=== PATIENT | male | born 1985 | race Caucasian/White ===

== ENCOUNTER 2016-10-10 11:36 | Emergency (ER) | payer BC ==
[2016-10-10 11:49] VITALS: BP 172/98
[2016-10-10] MEDS ORDERED: KETOROLAC TROMETHAMINE 60 MG/2 ML VIAL IM ONE ×2 (11:58→12:10)
[2016-10-10] MEDS ORDERED: CYCLOBENZAPRINE HCL 10 MG TABLET PO ONE (12:02)
[2016-10-10] MEDS ORDERED: CYCLOBENZAPRINE HCL 10 MG TABLET ONE (12:10)
--- NOTE | 2016-10-10 12:11 | ERNOTE ---
Back Pain ER HPI Date of Service: 10/10/16 Presenting Symptoms: injury/pain to back Time Seen by Provider: 10/10/16 11:57 Source: patient Exam Limitations: no limitations Immunizations: IMMUNIZATION HX Immunizations Up to Date Yes History of Influenza Vaccine No Hx Pneumococcal Vaccination No Allergies/Adverse Reactions: Allergies Sulfa (Sulfonamide Antibiotics) [Sulfa(Sulfonamide Antibiotics)] Allergy ( Unknown, Verified 10/10/16 11:49) REACTION A BABY, UNKOWN codeine Adverse Reaction (Mild, Verified 10/10/16 11:49) Nausea tramadol HCl [From Ultra] Adverse Reaction (Mild, Verified 10/10/16 11:49) Nausea Home Medications: HOME MEDICATIONS Albuterol Sulfate [Albuterol Sulfate 0.63 MG/3ML] 0.63 mg IH PRN 07/24/ [Last Taken Unknown] Ibuprofen [Motrin] 600 mg PO Q6H PRN 10/10/16 [Last Taken Unknown] Tizanidine HCl [Zanaflex] 4 mg PO TID PRN #15 capsule 10/10/16 [Last Taken Unknown] - Pain Score Pain Score #1 Pain Score: 10 - lower back, with movement Narrative: 31 y/o male presented to ED s/p fall 3 days ago. Patient states that he was walking down his deck stairs and slipped on the last stair and landed on his butt on the stair. His back pain is in the lower lumbar area more to the left side. Timing: Reports: constant, getting worse Quality/Severity: Reports: moderate Location of pain: Reports: lower back, radiating to lf thigh/leg, no radiation Activities at Onset: Reports: activity Recent Injury?: Reports: yes - 3 days ago Possible Precipitating Factor: Reports: fall/near fall Modifying Factors - (Improves): Reports: nothing, movement to right Modifying Factors - (Worsens): Reports: movement flexion Associated Symptoms: Reports: difficulty walking. Denies: constipation/ incontinence, problems urinating, numbess/weakness in legs Review of Systems - Narrative Narrative: . - Review of Systems Constitutional: Present: no symptoms reported EYE: Present: no symptoms reported ENT: Present: no symptoms reported Respiratory: Present: no symptoms reported Cardiology: Present: no symptoms reported Gastrointestinal/Abdominal: Present: no symptoms reported Genitourinary: Present: no symptoms reported Musculoskeletal: Present: See HPI, back pain, muscle pain Skin: Present: no symptoms reported Neurological: Present: no symptoms reported. Absent: numbness, tingling Endocrine: Present: no symptoms reported Hematologic/Lymphatic: Present: no symptoms reported Psych: Present: no symptoms reported - Patient's Past Medical History Patient History - Medical: Chronic Pain, Kidney stone Patient History - Cardiac/Respiratory: Asthma Patient History - Cancer: No Hx of Cancer Patient History - Surgical Procedures: Other Patient History - Other: None - Family History Mother Family History - Medical: Diabetes Type 2 Family History - Cardiac/Respiratory: Asthma - Social History Living Situations: home Abuse History: No History of abuse Psych History: No pertinent hx Smoking Status: Current every day smoker Alcohol Use: none Drug Use: other - Immunizations Immunizations Up to Date: Yes Hx Pneumococcal Vaccination: No History of Influenza Vaccine: No Physical Exam - Physical Exam Narrative: patient c/o low thoracic back pain after a fall 3 days ago. patients pain was reproduced by a left leg raise. Right leg raise did not reproduce pain General Appearance: Present: wd/wn, alert Eye Exam: Normal inspection: bilateral Ears, Nose, Throat: Present: normal ENT inspection Neck: Present: normal inspection Respiratory: Present: no respiratory distress Cardiovascular/Chest: Present: regular rate, rhythm Peripheral Pulses: N=norm/S=strong/W=weak/B=bound/A=absent: Radial (R): Normal, Radial (L): Normal Gastrointestinal/Abdominal: Present: normal bowel sounds Back Exam: Present: vertebral tenderness, decreased range of motion, muscle spasm, other - patient c/o low thoracic back pain after a fall 3 days ago. patients pain was reproduced by a left leg raise. Right leg raise did not reproduce pain Extremity Exam: Present: normal inspection, non-tender, no edema, pedal edema Neurological Exam: Present: alert, oriented, normal mood/affect Skin Exam: Present: normal color Lymphatic Exam: Present: no adenopathy ED Progress - Vital Signs Patient's Vital Signs:: I have reviewed the patient's vital signs. Vital Signs: Vital Signs 10/10/16 11:45 Temperature 36.1 C L Pulse Rate 115 H Respiratory 16 Rate Blood Pressure 172/98 O2 Sat by Pulse 98 Oximetry - X-Ray X-Ray #1 X-Ray: thoracic Interpretation: Reviewed by me X-ray Comments: FINDINGS: Lumbar Complete W/ Obliques *: Five nonrib-bearing lumbar vertebral bodies are noted. Pedicles are intact and symmetric. Interpediculate distances are normal. Lateral view demonstrates no compression deformity. Normal alignment is seen. Mild disc space narrowing at L5-S1, stable. Oblique images demonstrate no definite signs of spondylolysis. IMPRESSION: 1. No acute osseous finding. 2. Mild disc space narrowing at L5-S1, stable. Electronically signed by Elizabeth Nguyen M.D.. X-Ray #2 X-Ray: lumbosacral Interpretation: Reviewed by me X-ray Comments: FINDINGS: Lumbar Complete W/ Obliques *: Five nonrib-bearing lumbar vertebral bodies are noted. Pedicles are intact and symmetric. Interpediculate distances are normal. Lateral view demonstrates no compression deformity. Normal alignment is seen. Mild disc space narrowing at L5-S1, stable. Oblique images demonstrate no definite signs of spondylolysis. IMPRESSION: 1. No acute osseous finding. 2. Mild disc space narrowing at L5-S1, stable. Electronically signed by Elizabeth Nguyen M.D.. 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 no signs of medication abuse at this time. Plan - Plan Plan: patient to go home, rest, ice or heat for comfort. continue to take motrin 800 mg po TID. Off work till saturday10-15-16. Departure Clinical Impression: Low back strain Qualifiers: Encounter type: initial encounter Qualified Code(s): S39.012A - Strain of muscle, fascia and tendon of lower back, initial encounter Back pain Qualifiers: Back pain location: low back pain Chronicity: chronic Back pain laterality: left Sciatica presence: without sciatica Qualified Code(s): M54.5 - Low back pain; G89.29 - Other chronic pain - Departure Disposition: Home self-care Condition: Stable Instructions: Back Pain, Adult, Form - Excuse from Work, School, or Physical Activity Additional Instructions: continue over the counter pain medication as needed. May take up to 800mg motrin every 8 hours for pain as needed. may take first dose of motrin at 8pm tonight 10/10/16. May start Zanaflex at 8pm tonight every 8 hours for muscle spasm. Follow up with primary care doctor if condition does not improve. May apply heat or ice for discomfort. Rest and drink plenty of fluids. Prescriptions: Tizanidine HCl [Zanaflex] 4 mg PO TID PRN #15 capsule PRN Reason: Muscle Spasm
--- OUTSIDE RECORDS SUMMARY | 2016-10-10 12:18 | XMS REPORT | Continuity of Care Document ---
:1985 Author Organization [facility] ([facility]) Address [address] [place] [address] Phone [phone] Care Team Providers Name Role Phone Provider, No-Primary Care Primary Care Provider Unavailable Source Comments This disclosure is being made pursuant to the Care Everywhere program, applicable federal and state laws, and may not contain all informaitonavailable regarding this patient.[facility] ([facility]) Active Allergies and Adverse Reactions Allergen Noted Date Severity Reactions Comments Nisoldipine 01/30/2009 OTHER Unknown reaction Sulfa (Sulfonamide 10/03/2011 Nausea & Vomiting Antibiotics) Tramadol 10/03/2011 Stomach Pain Current Medications Prescription Sig. Disp. Refills Start Date End Date Status ibuprofen 800 mg tablet Take 1 Tab by 25 Tab 0 10/30/2011 Active mouth every 6 hours as needed for Pain. Indications: Pain ALBUTEROL INH Use by Active inhalation. HYDROcodone-acetaminophen Take 1-2 Tabs by 20 Tab 0 08/11/2012 Active 5-325 mg per tablet mouth every 6 hours as needed. Indications: PAIN Active Problems Problem Noted Date Fractured tooth 10/03/2011 Social History Tobacco Use Types Packs/Day Years Used Date Current Every Day Smoker Cigarettes 0.5 10 Tobacco Cessation:Ready to Quit: No Comments: Last Filed Vital Signs Vital Sign Reading Time Taken Blood Pressure 121/71 03/06/2012 10:46 AM CDT Pulse 84 08/11/2012 1:21 PM EFFICIENCY MANAGER Temperature 35.5 C (95.9 F) 08/11/2012 1:21 PM EFFICIENCY MANAGER Respiratory Rate 18 08/11/2012 1:21 PM EFFICIENCY MANAGER Height 1.829 m (6') 10/03/2011 1:45 PM EFFICIENCY MANAGER Weight 88.451 kg (195 lb) 10/03/2011 1:45 PM EFFICIENCY MANAGER Body Mass Index 26.44 10/03/2011 1:45 PM EFFICIENCY MANAGER Oxygen Saturation 99% 08/11/2012 1:21 PM EFFICIENCY MANAGER Plan of Care Health Maintenance Due Date Last Done Comments Hepatitis B Vaccine (1 of 3 - Primary Series) 1985 Tdap Vaccine 01/11/1996 Lipid Disorder Screening 2003 MMR Vaccine 2003 Td Vaccine 2003 Varicella Vaccine (1 of 2 - Adult - No Evidence of 2003 Immunity) Pneumococcal Vaccine (1 of 1 - PPSV23) 01/11/2004 Influenza Vaccine: Seasonal (#1) 03/12/2016 Results from Last 3 Months Not on file
== END 2016-10-10 13:18 | disposition home or self-care (01) ==
LOC: ER 11:36
DX: S39.012A Strain of muscle, fascia and tendon of lower back, initial encounter (principal); Z87.442 Personal history of urinary calculi; F17.210 Nicotine dependence, cigarettes, uncomplicated; W10.8XXA Fall (on) (from) other stairs and steps, initial encounter; Y93.01 Activity, walking, marching and hiking; Y92.008 Other place in unspecified non-institutional (private) residence as the place of occurrence of the external cause

== ENCOUNTER 2016-10-12 09:17 | Emergency (ER) | payer BC ==
[2016-10-12 09:27] VITALS: BP 133/75
[2016-10-12] MEDS ORDERED: ORPHENADRINE CITRATE 30 MG/ML VIAL IM ONE (09:36)
[2016-10-12] MEDS ORDERED: KETOROLAC TROMETHAMINE 30 MG/ML VIAL IM ONE (09:36)
[2016-10-12] MEDS ORDERED: oxyCODONE HCL/ACETAMINOPHEN 1 TAB TABLET PO ONE (09:36)
[2016-10-12] MEDS ORDERED: TRIAMCINOLONE ACETONIDE 40 MG/ML VIAL IJ ONE (09:36)
[2016-10-12] MEDS ORDERED: KETOROLAC TROMETHAMINE 30 MG/ML VIAL ONE (09:42)
[2016-10-12] MEDS ORDERED: oxyCODONE HCL/ACETAMINOPHEN 1 TAB TABLET ONE (09:42)
[2016-10-12] MEDS ORDERED: ORPHENADRINE CITRATE 30 MG/ML VIAL ONE (09:43)
[2016-10-12] MEDS ORDERED: TRIAMCINOLONE ACETONIDE 40 MG/ML VIAL ONE (09:44)
--- NOTE | 2016-10-12 09:50 | ERNOTE ---
Back Pain ER HPI Date of Service: 10/12/16 Presenting Symptoms: injury/pain to back Time Seen by Provider: 10/12/16 09:31 Source: patient Exam Limitations: no limitations Immunizations: IMMUNIZATION HX Immunizations Up to Date Yes History of Influenza Vaccine No Hx Pneumococcal Vaccination No Allergies/Adverse Reactions: Allergies Sulfa (Sulfonamide Antibiotics) [Sulfa(Sulfonamide Antibiotics)] Allergy ( Unknown, Verified 10/12/16 09:27) REACTION A BABY, UNKOWN codeine Adverse Reaction (Mild, Verified 10/12/16 09:27) Nausea tramadol HCl [From Ultra] Adverse Reaction (Mild, Verified 10/12/16 09:27) Nausea Home Medications: HOME MEDICATIONS Albuterol Sulfate [Albuterol Sulfate 0.63 MG/3ML] 0.63 mg IH PRN 07/24/15 [Last Taken Unknown] Ibuprofen [Motrin] 600 mg PO Q6H PRN 10/10/16 [Last Taken Unknown] Tizanidine HCl [Zanaflex] 4 mg PO TID PRN #15 capsule 10/10/16 [Last Taken Unknown] Naproxen [Naprosyn] 500 mg PO BID #20 tablet 10/12/16 [Last Taken Unknown] Orphenadrine Citrate [Norflex] 100 mg PO Q12H #14 tablet.sa 10/12/16 [Last Taken Unknown] oxyCODONE HCL/ACETAMINOPHEN [Percocet 5 MG/325 MG] 1 tab PO Q8H #15 tablet 10/12 [Last Taken Unknown] Narrative: Patient reported that he has a lower back pain that get worse with movement, standing, breathing, or touching the area. Patient reported that he felt and landed on a sit position. Patient also reported that he has a know back problem due to a previous event. Timing: Reports: constant Quality/Severity: Reports: severe, aching, sharpness Location of pain: Reports: lower back, radiating to lf thigh/leg Activities at Onset: Reports: other - Fall Recent Injury?: Reports: yes Possible Precipitating Factor: Reports: fall/near fall Modifying Factors - (Improves): Reports: nothing Modifying Factors - (Worsens): Reports: supine position, upright position, movement to right, movement to left, movement flexion, cough/deep breaths Associated Symptoms: Reports: sweating, difficulty walking, numbess/weakness in legs - L leg area. Denies: fever/chills, constipation/incontinence, nausea/ vomiting, problems urinating, lightheadedness Prior Treament: Reports: recently seen - Patient was seen at ER on 10/10/2016 Review of Systems - Review of Systems Constitutional: Present: no symptoms reported EYE: Present: no symptoms reported ENT: Present: no symptoms reported Respiratory: Present: no symptoms reported Cardiology: Present: no symptoms reported Gastrointestinal/Abdominal: Absent: nausea, vomiting, diarrhea, constipation, abdominal pain Genitourinary: Present: other - No urinary retention or obstruction reported. Absent: pain, dysuria, hematuria, decreased urinary output, discharge Musculoskeletal: Present: back pain, muscle pain, muscle stiffness, joint pain - pain on the lower back area Skin: Present: no symptoms reported Neurological: Present: tingling - L leg area. Absent: anxiety, depressed, emotional problems, headache, dizziness/light-headedness, seizure, weakness, numbness, tremors Endocrine: Present: no symptoms reported Hematologic/Lymphatic: Present: no symptoms reported Psych: Present: no symptoms reported All Other Systems: All systems neg except as marked - Patient's Past Medical History Patient History - Medical: Chronic Pain, Kidney stone Patient History - Cardiac/Respiratory: Asthma Patient History - Cancer: No Hx of Cancer Patient History - Surgical Procedures: Other Patient History - Other: None - Family History Mother Family History - Medical: Diabetes Type 2 Family History - Cardiac/Respiratory: Asthma - Social History Living Situations: home Abuse History: No History of abuse Psych History: No pertinent hx Alcohol Use: none Drug Use: other - Immunizations Immunizations Up to Date: Yes Hx Pneumococcal Vaccination: No History of Influenza Vaccine: No Physical Exam - Physical Exam General Appearance: Present: alert, no apparent distress, other - patient seem in pain. Absent: obese, cachetic Eye Exam: Normal inspection: bilateral, PERRL: bilateral, EOMI: bilateral Ears, Nose, Throat: Present: normal ENT inspection Neck: Present: normal inspection, nontender, supple, full range of motion Respiratory: Present: no respiratory distress, normal breath sounds, no accessory muscle use, chest nontender, lungs clear Cardiovascular/Chest: Present: regular rate, rhythm, no murmur, normal peripheral pulses Gastrointestinal/Abdominal: Present: normal bowel sounds, nontender, nondistended, soft, no organomegaly Male Genitals Exam: Present: normal genitalia, normal prostate, no hernia Back Exam: Present: vertebral tenderness - L4 tenderness on mid line palpation, decreased range of motion - due to pain, muscle spasm - Bilateral lower back area. Absent: CVA tenderness (R), CVA tenderness (L) Extremity Exam: Present: normal inspection, non-tender, normal range of motion, no edema Neurological Exam: Present: alert, oriented, normal mood/affect, other - Patient has decrease sensation on the L leg area. L4 dermatome is more affected at the moment by having decrease sensation when compared to R side.. Absent: motor weakness DTR: N=norm/NB=norm/brisk/A=abs/DD=dull/dimin/HC=hyperactive: Ankle (R): Absent - Decreased when compared to R side Skin Exam: Absent: cool/dry, diaphoresis, cyanosis, jaundice, pallor, skin rash , diaper rash Lymphatic Exam: Present: no adenopathy ED Progress - Date and Time Seen: Date and Time: 10/12/16 09:48 Patient x-rays reports done on 10/10/2016 were noticed. No Fx found. Patient was found with Mild disc narrowing at L5-S1 on L-Spine x-ray. 10/12/16 10:46 Patient has improved. No Fx reported on CT of the L-Spine. Patient is to follow up with his PCP and physical therapy is recommended to patient. - Vital Signs Vital Signs: Vital Signs 10/12/16 09:23 Temperature 36.4 C L Pulse Rate 99 Respiratory 12 Rate Blood Pressure 133/75 O2 Sat by Pulse 100 Oximetry - CT/Ultrasound CT/Ultrasound Narrative: CT report of the L-Spine was read. - Progress/Reassessment Chief Complaint: Back Pain Progress:: Improved - Transfer of Care Expected Disposition: Discharge Departure Clinical Impression: Muscle spasm Back pain Qualifiers: Back pain location: low back pain Chronicity: acute Back pain laterality: midline Sciatica presence: with sciatica Sciatica laterality: sciatica of left side Qualified Code(s): M54.42 - Lumbago with sciatica, left side - Departure Disposition: Home self-care Condition: Stable Instructions: Smoking Hazards, Sciatica With Rehab-SportsMed, Low Back Sprain With Rehab-SportsMed, Back Pain, Adult, Back Exercises, Smoking Cessation, Tips for Success, Form - Excuse from Work, School, or Physical Activity Additional Instructions: Please follow up with your primary care provider. Physical Therapy is recommended for your condition. Prescriptions: Naproxen [Naprosyn] 500 mg PO BID #20 tablet Orphenadrine Citrate [Norflex] 100 mg PO Q12H #14 tablet.sa oxyCODONE HCL/ACETAMINOPHEN [Percocet 5 MG/325 MG] 1 tab PO Q8H #15 tablet
--- OUTSIDE RECORDS SUMMARY | 2016-10-12 10:00 | XMS REPORT | Continuity of Care Document ---
:1985 Author Organization [facility] ([facility]) Address [address] [place] [address] Phone [phone] Care Team Providers Name Role Phone Provider, No-Primary Care Primary Care Provider Unavailable Source Comments This disclosure is being made pursuant to the Care Everywhere program, applicable federal and state laws, and may not contain all informaitonavailable regarding this patient.[facility] ([facility]) Active Allergies and Adverse Reactions Allergen Noted [...] AM CDT Pulse 84 08/11/2012 1:21 PM STATEMENT CLERKS SUPERVISOR Temperature 35.5 C (95.9 F) 08/11/2012 1:21 PM STATEMENT CLERKS SUPERVISOR Respiratory Rate 18 08/11/2012 1:21 PM STATEMENT CLERKS SUPERVISOR Height 1.829 m (6') 10/03/2011 1:45 PM STATEMENT CLERKS SUPERVISOR Weight 88.451 kg (195 lb) 10/03/2011 1:45 PM STATEMENT CLERKS SUPERVISOR Body Mass Index 26.44 10/03/2011 1:45 PM STATEMENT CLERKS SUPERVISOR Oxygen Saturation 99% 08/11/2012 1:21 PM STATEMENT CLERKS SUPERVISOR Plan of Care Health Maintenance Due Date [...]
[2016-10-12 11:34] LABS: Urine Appearance Clear; Urine Bacteria TRACE; Urine Bilirubin Negative (NEGATIVE); Urine Blood Negative /ul (NEGATIVE); Urine Color Yellow; Urine Ketone Negative (NEGATIVE); Urine Nitrite Negative (NEGATIVE); Urine Protein Negative (NEGATIVE); Urine RBC None Seen /hpf (0-5); Urine Specific Gravity <=1.005 SP.GR. (1.005-1.030); Urine Urobilinogen Normal (NORMAL); Urine WBC None Seen /hpf (0-5)
== END 2016-10-12 11:01 | disposition home or self-care (01) ==
LOC: ER 09:17
DX: M62.830 Muscle spasm of back (principal); M54.42 Lumbago with sciatica, left side

== ENCOUNTER 2016-10-21 10:42 | Emergency (ER) | payer BC ==
[2016-10-21 11:10] VITALS: BP 139/77
--- OUTSIDE RECORDS SUMMARY | 2016-10-21 11:50 | XMS REPORT | Continuity of Care Document ---
:1985 Author Organization [facility] ([facility]) Address [address] [place] [address] Phone [phone] Care Team Providers Name Role Phone Provider, No-Primary Care Primary Care Provider Unavailable Source Comments This disclosure is being made pursuant to the Care Everywhere program, applicable federal and state laws, and may not contain all informaitonavailable regarding this patient.[facility] ([facility]) Active Allergies and Adverse Reactions Allergen [...] AM CDT Pulse 84 08/11/2012 1:[address] Temperature 35.5 C (95.9 F) 08/11/2012 1:21 [address] Respiratory Rate 18 08/11/2012 1:21 PM [address] CL[address] OF COURT Height 1.829 m (6') 10/03/2011 1:[address] OF COURT Weight 88.451 kg (195 lb) 10/03/2011 1:[address] OF [address] Body Mass Index 26.44 10/03/2011 1:[address] OF [address] Oxygen Saturation 99% 08/11/2012 1:21 PM DEPUTY CLERK OF COURT Plan of Care Health Maintenance Due Date [...]
[2016-10-21] MEDS ORDERED: KETOROLAC TROMETHAMINE 60 MG/2 ML VIAL IM ONE ×2 (11:57→12:01)
[2016-10-21] MEDS ORDERED: ORPHENADRINE CITRATE 30 MG/ML VIAL IM ONE (11:57)
--- NOTE | 2016-10-21 11:57 | ERNOTE ---
Back Pain ER HPI Date of Service: 10/21/16 Presenting Symptoms: hx chronic back pain Time Seen by Provider: 10/21/16 11:33 Source: patient Exam Limitations: no limitations Immunizations: IMMUNIZATION HX Immunizations Up to Date Yes History of Influenza Vaccine No Hx Pneumococcal Vaccination No Allergies/Adverse Reactions: Allergies Sulfa (Sulfonamide Antibiotics) [Sulfa(Sulfonamide Antibiotics)] Allergy ( Unknown, Verified 10/21/16 11:10) REACTION A BABY, UNKOWN codeine Adverse Reaction (Mild, Verified 10/21/16 11:10) Nausea tramadol HCl [From [facility]] Adverse Reaction (Mild, Verified 10/21/16 11:10) Nausea Home Medications: HOME MEDICATIONS Albuterol Sulfate [Albuterol Sulfate 0.63 MG/3ML] 0.63 mg IH PRN 07/24/15 [Last Taken Unknown] Ibuprofen [Motrin] 600 mg PO Q6H PRN 10/10/16 [Last Taken Unknown] Meloxicam [Mobic] 7.5 mg PO DAILY #30 tablet 10/21/16 [Last Taken Unknown] Orphenadrine Citrate [Norflex] 100 mg PO Q12H #20 tablet.sa 10/21/16 [Last Taken Unknown] Narrative: Pt. comes in with c/o being out of pain medication for chronic back pain that was exacerbated by a fall last month and has been treated here twice. Pt. states that he has contacted a pain clinic but is unaware as to if he will be accepted as a patient at this time. Pt. denies any numbness, tingling, or incontinence but does state that the pain radiates down his R leg. Pt. states that oxycodone and norflex improve the pain but nothing completely alleviates it and states taut movement exacerbates the pain. Review of Systems - Review of Systems Constitutional: Present: no symptoms reported. Absent: recent illness, fever, chills, weakness, fatigue, malaise EYE: Present: no symptoms reported ENT: Present: no symptoms reported Respiratory: Present: no symptoms reported. Absent: shortness of breath, cough , wheezing Cardiology: Present: no symptoms reported. Absent: chest pain, palpitations, edema Gastrointestinal/Abdominal: Present: no symptoms reported Genitourinary: Present: no symptoms reported Musculoskeletal: Present: back pain, muscle pain - R buttock and thigh. Absent : neck pain, joint pain Skin: Present: no symptoms reported. Absent: rash Neurological: Present: no symptoms reported. Absent: headache, dizziness/light- headedness, numbness, tingling All Other Systems: All systems neg except as marked - Patient's Past Medical History Patient History - Medical: Chronic Pain, Kidney stone Patient History - Cardiac/Respiratory: Asthma Patient History - Cancer: No Hx of Cancer Patient History - Surgical Procedures: Other Patient History - Other: None - Family History Mother Family History - Medical: Diabetes Type 2 Family History - Cardiac/Respiratory: Asthma - Social History Living Situations: home Abuse History: No History of abuse Psych History: No pertinent hx Smoking Status: Current every day smoker Have you smoked in the past 12 months: Yes Do you dip or chew tobacco: No Alcohol Use: none Drug Use: other - Immunizations Immunizations Up to Date: Yes Hx Pneumococcal Vaccination: No History of Influenza Vaccine: No Physical Exam - Physical Exam General Appearance: Present: wd/wn, alert, no apparent distress Eye Exam: Normal inspection: bilateral, PERRL: bilateral, EOMI: bilateral Ears, Nose, Throat: Present: normal ENT inspection, normal pharynx Neck: Present: normal inspection, nontender. Absent: lymphadenopathy (R), lymphadenopathy (L) Respiratory: Present: no respiratory distress, normal breath sounds, no accessory muscle use, chest nontender, lungs clear Cardiovascular/Chest: Present: regular rate, rhythm, no murmur, normal peripheral pulses Gastrointestinal/Abdominal: Present: normal bowel sounds, nontender, nondistended, soft, no organomegaly Back Exam: Present: normal range of motion, no CVA tenderness, vertebral tenderness - L4-5, muscle spasm - R para spinous [id number] Extremity Exam: Present: normal inspection, non-tender, normal range of motion, no edema Neurological Exam: Present: alert, oriented, normal mood/affect, no motor/ sensory deficits. Absent: motor weakness Skin Exam: Present: normal color, warm/dry. Absent: pallor, skin rash ED Progress - Date and Time Seen: Date and Time: 10/21/16 11:49 Do not feel that further imaging of back would be appropriate for pt. as he is not having any change in symptoms and both xray and CT have been negative for acute abnormalities. Also feel that pt. should be referred to adult specialist for injection and PT. rather than pain clinic at this time as Pt. has diagnosis that could be aided greatly by injections or PT. - Vital Signs Patient's Vital Signs:: I have reviewed the patient's vital signs. Vital Signs: Vital Signs 10/21/16 11:07 Temperature 36.4 C L Pulse Rate 92 Respiratory 14 Rate Blood Pressure 139/77 O2 Sat by Pulse 99 Oximetry - Progress/Reassessment Chief Complaint: Back Pain Departure Clinical Impression: Muscle spasm Back pain Qualifiers: Back pain location: low back pain Chronicity: chronic Back pain laterality: midline Sciatica presence: with sciatica Sciatica laterality: sciatica of right side Qualified Code(s): M54.41 - Lumbago with sciatica, right side; G89.29 - Other chronic pain - Departure Disposition: Home self-care Condition: Good Instructions: Degenerative Disk Disease Additional Instructions: Please follow up with orthopedics this week by calling office for appointment at your earliest convenience. Do not take any more Ibuprofen or Naproxen may have tylenol or over the counter lidocaine patch for breakthrough pain while working. Referrals: Delfino Tucker MD [Staff Physician] - Prescriptions: Meloxicam [Mobic] 7.5 mg PO DAILY #30 tablet Orphenadrine Citrate [Norflex] 100 mg PO Q12H #20 tablet.sa
[2016-10-21] MEDS ORDERED: ORPHENADRINE CITRATE 30 MG/ML VIAL ONE (12:01)
== END 2016-10-21 12:12 | disposition home or self-care (01) ==
LOC: ER 10:42
DX: M54.41 Lumbago with sciatica, right side (principal); G89.29 Other chronic pain

== ENCOUNTER 2016-10-22 15:28 | Emergency (ER) | payer BC ==
[2016-10-22 15:37] VITALS: BP 144/92
--- NOTE | 2016-10-22 16:01 | ERNOTE ---
Back Pain ER HPI Presenting Symptoms: injury/pain to back Time Seen by Provider: 10/22/16 15:46 Source: patient Exam Limitations: no limitations Immunizations: IMMUNIZATION HX Immunizations Up to Date Yes History of Influenza Vaccine No Hx Pneumococcal Vaccination No Allergies/Adverse Reactions: Allergies Sulfa (Sulfonamide Antibiotics) [Sulfa(Sulfonamide Antibiotics)] Allergy ( Unknown, Verified 10/22/16 15:37) REACTION A BABY, UNKOWN codeine Adverse Reaction (Mild, Verified 10/22/16 15:37) Nausea tramadol HCl [From [facility]] Adverse Reaction (Mild, Verified 10/22/16 15:37) Nausea Home Medications: HOME MEDICATIONS Albuterol Sulfate [Albuterol Sulfate 0.63 MG/3ML] 0.63 mg IH PRN 07/24/15 [Last Taken Unknown] Meloxicam [Mobic] 7.5 mg PO DAILY #30 tablet 10/21/16 [Last Taken 10/22/16 09:00 ] Orphenadrine Citrate [Norflex] 100 mg PO Q12H #20 tablet.sa 10/21/16 [Last Taken 10/22/16 09:00] Hydrocodone/Acetaminophen [Lorcet 5-325 mg Tablet] 2 each PO HS PRN #4 tablet [Last Taken Unknown] Methylprednisolone [Medrol Dosepak] 4 mg PO DAILY #21 tab.ds.pk 10/22/16 [Last Taken Unknown] Narrative: Pt states he had hurt his back about a year ago and had MRI which found L5-S1 disc rupture. This has resolved. Two weeks ago he fell and injured his back and has had pain similar to previous. He has left radiation to his calf. Timing: Reports: constant Quality/Severity: Reports: moderate, aching Location of pain: Reports: lower back, radiating to lf thigh/leg Activities at Onset: Reports: none Recent Injury?: Reports: yes Possible Precipitating Factor: Reports: fall/near fall Modifying Factors - (Improves): Reports: supine position Modifying Factors - (Worsens): Reports: upright position, movement to left Prior Treament: Reports: recently seen - in this ED. Review of Systems - Review of Systems Constitutional: Present: no symptoms reported EYE: Present: no symptoms reported ENT: Present: no symptoms reported Respiratory: Present: no symptoms reported Cardiology: Present: no symptoms reported Gastrointestinal/Abdominal: Present: no symptoms reported Genitourinary: Present: other - denies difficulty urinating Musculoskeletal: Present: See HPI Skin: Present: no symptoms reported Neurological: Present: weakness Endocrine: Present: no symptoms reported Hematologic/Lymphatic: Present: no symptoms reported Psych: Present: no symptoms reported - Patient's Past Medical History Patient History - Medical: Chronic Pain, Kidney stone Patient History - Cardiac/Respiratory: Asthma Patient History - Cancer: No Hx of Cancer Patient History - Surgical Procedures: Other Patient History - Other: None - Family History Mother Family History - Medical: Diabetes Type 2 Family History - Cardiac/Respiratory: Asthma - Social History Living Situations: home Abuse History: No History of abuse Psych History: No pertinent hx Smoking Status: Current every day smoker Have you smoked in the past 12 months: Yes Alcohol Use: none Drug Use: other - Immunizations Immunizations Up to Date: Yes Hx Pneumococcal Vaccination: No History of Influenza Vaccine: No Physical Exam - Physical Exam General Appearance: Present: wd/wn, alert, mild distress Neck: Present: normal inspection, nontender Respiratory: Present: no respiratory distress, no accessory muscle use Back Exam: Present: no vertebral tenderness, decreased range of motion - lumbar spine, muscle spasm - bilateral Neurological Exam: Present: alert, oriented, other - equivical SLR on the left. Has increase in back pain with any movement Skin Exam: Present: normal color, warm/dry ED Progress - Vital Signs Vital Signs: Vital Signs 10/22/16 15:31 Temperature 36.0 C L Pulse Rate 87 Respiratory 18 Rate Blood Pressure 144/92 O2 Sat by Pulse 100 Oximetry - Progress/Reassessment Chief Complaint: Back Pain Departure Clinical Impression: Sciatica of left side - Departure Disposition: Home Follow Up Needed Condition: Good Instructions: Back Pain, Adult Additional Instructions: Take pain meds at bedtime to help you get relief and sleep. take the medrol dose pack as directed starting tonight. take all of the first days doses in 1 or 2 doses with some food each time. Follow up with the appointment you have with spinal orthopedics this Saturday. Use heat and ice alternating leaving 15- 20 minutes in between. Do not lift heavy objects but continue to otherwise be active. Prescriptions: Hydrocodone/Acetaminophen [Lorcet 5-325 mg Tablet] 2 each PO HS PRN #4 tablet PRN Reason: Pain Methylprednisolone [Medrol Dosepak] 4 mg PO DAILY #21 tab.ds.pk
--- OUTSIDE RECORDS SUMMARY | 2016-10-22 16:04 | XMS REPORT | Continuity of Care Document ---
:1985 Author Organization [facility] ([facility]) Address [address] [place] [address] Phone [phone] Care Team Providers Name Role Phone Provider, No-Primary Care Primary Care Provider Unavailable Source Comments This disclosure is being made pursuant to the Care Everywhere program, applicable federal and state laws, and may not contain all informaitonavailable regarding this patient.[facility] ([facility]) Active Allergies and Adverse Reactions Allergen [...] AM CDT Pulse 84 08/11/2012 1:21 PM [employer] Temperature 35.5 C (95.9 F) 08/11/2012 1:21 PM [employer] Respiratory Rate 18 08/11/2012 1:21 PM [employer] Height 1.829 m (6') 10/03/2011 1:45 PM [employer] Weight 88.451 kg (195 lb) 10/03/2011 1:45 PM [employer] Body Mass Index 26.44 10/03/2011 1:45 PM [employer] Oxygen Saturation 99% 08/11/2012 1:21 PM [employer] Plan of Care Health Maintenance Due Date [...]
== END 2016-10-22 16:42 | disposition home or self-care (01) ==
LOC: ER 15:28
DX: M54.32 Sciatica, left side (principal); Z72.0 Tobacco use; G89.29 Other chronic pain